=== PATIENT | female | born 1975 | race Caucasian/White ===

== ENCOUNTER 2020-03-27 11:12 | Emergency (ER) | payer BC ==
[2020-03-27 11:43] VITALS: BP 124/94; PULSE 70
[2020-03-27 12:07] LABS: ANION GAP 12.2 mEq/L (7-13); CHLORIDE,CL 101 mmol/L (98-107); SODIUM,NA 138 mmol/L (136-145)
--- NOTE | 2020-03-27 12:27 | EDM.PDOC ---
<Michelle Weber - Last Filed: 03/27/20 12:32> ED HPI GENERAL MEDICAL PROBLEM - General Chief Complaint: Chest Pain Stated Complaint: CHEST PAIN, SHORTNESS OF BREATH Time Seen by Provider: 03/27/20 11:45 Source of Information: Reports: Patient, RN, RN Notes Reviewed History Limitations: Reports: No Limitations - History of Present Illness INITIAL COMMENTS - FREE TEXT/NARRATIVE: pt arrived to ER with complaint of SOB and chest pain/pressure that started shortly before her arrival. states she felt like she was having a panic attack, but it was not typical for her. states she awoke this am with migraine which was typical for her. Pt took her triptan which relieved her migraine and she was able to go back to sleep again. reports episode of nausea, denies vomiting. denies pain or nausea at this time. states last panic attack was in August 2019, last use of triptan for migraine was 8 months ago. Chest Pain Score (Numeric/FACES): 2 - Related Data Allergies Allergy/AdvReac Type Severity Reaction Status Date / Time Penicillins Allergy Anaphylactic Verified 03/27/20 11:48 Shock strawberry Allergy Hives Verified 07/02/14 11:26 Home Meds: Home Meds Aspirin/Acetaminophen/Caffeine [Migraine Relief Caplet] 1 tab PO Q12HR PRN 07/03 [History] Butalbit/Acetamin/Caff/Codeine [Mesdlu-Stswbhfu-Hrh-Cod 50-300] 1 tab PO ASDIRECTED PRN 03/27/20 [History] Propranolol [Inderal] 40 mg PO DAILY 03/27/20 [History] Spironolactone [Aldactone] 25 mg PO DAILY 03/27/20 [History] Past Medical History Cardiovascular History: Reports: Hypertension Neurological History: Reports: Migraines Psychiatric History: Reports: Anxiety Social & Family History - Tobacco Use Tobacco Use Status *Q: Never Tobacco User - Recreational Drug Use Recreational Drug Use: No - Living Situation & Occupation Living situation: Reports: , with Spouse Occupation: Employed ED ROS GENERAL - Review of Systems Review Of Systems: Comprehensive ROS is negative, except as noted in HPI. ED EXAM, GENERAL - Physical Exam Exam: See Below Exam Limited By: No Limitations General Appearance: Alert, WD/WN, No Apparent Distress Eye Exam: Bilateral Eye: EOMI, Normal Inspection, PERRL Ears: Normal External Exam, Hearing Grossly Normal Nose: Normal Inspection, No Blood Throat/Mouth: Normal Inspection, Normal Lips, Normal Teeth, Normal Gums, Normal Oropharynx, Normal Voice, No Airway Compromise Head: Atraumatic, Normocephalic Neck: Normal Inspection, Supple, Non-Tender, Full Range of Motion Respiratory/Chest: No Respiratory Distress, Lungs Clear, Normal Breath Sounds, No Accessory Muscle Use, Chest Non-Tender Cardiovascular: Normal Peripheral Pulses, Regular Rate, Rhythm, No Murmur GI/Abdominal: Normal Bowel Sounds, Soft, Non-Tender, No Distention (Female) Exam: Deferred Rectal (Female) Exam: Deferred Back Exam: Normal Inspection, Full Range of Motion Extremities: Normal Inspection, Normal Range of Motion, Non-Tender, Normal Capillary Refill Neurological: Alert, Oriented, CN II-XII Intact, Normal Cognition, Normal Gait, Normal Reflexes, No Motor/Sensory Deficits Psychiatric: Normal Affect, Normal Mood Skin Exam: Warm, Dry, Intact, Normal Color, No Rash Lymphatic: No Adenopathy Departure - Departure Time of Disposition: 12:28 Disposition: Home, Self-Care 01 Condition: Good Clinical Impression: Atypical chest pain Instructions: Nonspecific Chest Pain, Adult Referrals: PCP,None [Primary Care Provider] - Forms: ED Department Discharge Additional Instructions: The patient was advised of examination and laboratory findings. Discussed with patient potential side effects of triptans to include chest pain. Return to ER if symptoms return. Sepsis Event Note (ED) - Evaluation Sepsis Screening Result: No Definite Risk <Sudarshan Frias - Last Filed: 03/27/20 14:34> Course - Re-Assessments/Exams Free Text/Narrative Re-Assessment/Exam: 03/27/20 14:34 I personally performed or re-performed the physical examination and medical decision making. I have verified all student documentation or findings, including history, physical exam and/or medical decision making. <Sandy Anthony - Last Filed: 03/27/20 16:42> #1 Interpretation EKG Date: 03/27/20 Time: 11:36 Rhythm: NSR Rate (Beats/Min): 63 [place]: LAD-Left [place] Deviation P-Wave: Present QRS: Normal ST-T: Depressed (Slight depression in V3 and V4) QT: Normal Comparison: No Change EKG Interpretation Comments: NSR; No evidence of acute ischemia Course - Vital Signs Last Recorded V/S: Last Vital Signs Temp 97.4 F 03/27/20 11:20 Pulse 70 03/27/20 11:20 Resp 12 03/27/20 11:20 BP 124/94 H 03/27/20 11:20 Pulse Ox 98 03/27/20 11:20 - Orders/Labs/Meds Labs: Laboratory Tests 03/27/20 03/27/20 Range/Units 11:32 11:32 WBC 7.2 (5.0-10.0) 10^3/uL RBC 3.96 L (4.2-5.4) 10^6/uL Hgb 12.7 (12.0-16.0) g/dL Hct 38.0 (37.0-47.0) % MCV 96.0 D (80-100) fL MCH 32.1 (27.0-34.0) pg MCHC 33.4 (33.0-35.0) g/dL Plt Count 204 (150-450) 10^3/uL Neut % (Auto) 40.8 L (42.2-75.2) % Lymph % (Auto) 49.9 (20.5-50.1) % [place] % (Auto) 6.4 (2-8) % Eos % (Auto) 2.6 (1.0-3.0) % Baso % (Auto) 0.3 (0.0-1.0) % Sodium 138 (136-145) mmol/L Potassium 4.2 (3.5-5.1) mmol/L Chloride 101 (98-107) mmol/L Carbon Dioxide 29 (21-32) mmol/L Anion Gap 12.2 (7-13) mEq/L BUN 13 (7-18) mg/dL Creatinine 0.87 (0.55-1.02) mg/dL Est Cr Clr Drug Dosing 73.48 mL/min Estimated GFR (MDRD) > 60 BUN/Creatinine Ratio 14.9 (No establ ref range) Glucose 132 H (74-99) mg/dL Calcium 9.6 (8.5-10.1) mg/dL Total Bilirubin 0.5 (0.2-1.0) mg/dL AST 16 (15-37) U/L ALT 38 (14-59) U/L Alkaline Phosphatase 63 (46-116) U/L Troponin I < 0.017 (0.000-0.056) ng/mL Total Protein 8.0 (6.4-8.2) g/dL Albumin 4.1 (3.4-5.0) g/dL Globulin 3.9 Albumin/Globulin Ratio 1.1 Sepsis Event Note (ED) - Focused Exam Vital Signs: Vital Signs Temp Pulse Resp BP Pulse Ox 03/27/20 11:20 97.4 F 70 12 124/94 H 98
== END 2020-03-27 12:39 | disposition home or self-care (01) ==
LOC: DL.ED 11:12
DX: R07.89 Other chest pain (principal); I10 Essential (primary) hypertension; Z79.899 Other long term (current) drug therapy; Z88.0 Allergy status to penicillin; Z91.018 Allergy to other foods
CPT/HCPCS: 36415; 80053; 84484; 85025; 93005; 99285-25